=== PATIENT | male | born 1965 | race Caucasian/White ===

== ENCOUNTER 2017-07-01 16:13 | Emergency (ER) | payer SELFPAY ==
[~2017-07-01] VITALS: Ht 172.7 cm; Wt 91.0 kg
[2017-07-01 17:01] VITALS: BP 130/100
[2017-07-01 18:13] LABS: CHLORIDE 105 mEq/L (98-107)
[2017-07-01 18:14] LABS: BASOPHILS % 0.4 % (0.0-2.0); EOSINOPHILS % 0.3 % (0.0-5.0); LYMPHOCYTES % 41.6 % (20.0-50.0); MEAN CORPUSCULAR HEMOGLOBIN 32.7 pg (28.0-32.0); MEAN CORPUSCULAR VOLUME 93.6 fL (80.0-94.0); MONOCYTES % 4.4 % (2.0-8.0); NEUTROPHILS % 53.3 % (40.0-76.0); PLATELET 137 x1000/uL (130-400); RED CELL DISTRIBUTION WIDTH 13.6 % (11.6-14.6)
[2017-07-01 18:31] LABS: ETHANOL BLOOD 428 mg/dL
== END 2017-07-01 19:01 | disposition left against medical advice (07) ==
LOC: ER 16:35
DX: F10.129 Alcohol abuse with intoxication, unspecified (principal); D18.09 Hemangioma of other sites; Y90.8 Blood alcohol level of 240 mg/100 ml or more
CPT/HCPCS: 36415; 70450; 72125; 80053; 82962; 85025; 99285; G0482